=== PATIENT | female | born 1960 | race Caucasian/White ===

== ENCOUNTER → 2018-05-17 | Day surgery (SDC) | payer BC ==
[~2018-05-17] MED LIST: BENEFIBER1 EACH PO; CALCIUM500 MG PO; DAILY VALUE1 EACH PO; DYMISTA NASAL S23 GM; FENTANYL CITRATE/PF 100MCG/2 ML INJ ONE; FISH OIL 1,0001 EAC2 PO; HYOSCYAMINE SULFATE 0.5 MG/ML AMP ONE; IRON PO; LIDOCAINE HCL 2% LOCAL INJ 5 ML SDV VIAL INJ ONE; MIDAZOLAM HCL 2 MG/2 ML VIAL ONE; MONTELUKAST SOD10 MG PO; NASCOBAL2.3 ML; NASOCORT; NINGXIA RED PO; POTASSIUM CHLORIDE PO; PROPOFOL IV EMULSION 10 MG/ML 50 ML VIAL ONE; VITAMIN C1000 M1 PO; VITAMIN E1000 UNIT PO
[2018-05-17 09:10] VITALS: BP 119/79
--- NOTE | 2018-05-17 09:33 | Operative Report ---
DATE OF PROCEDURE: May 17, 2018 PROCEDURE PERFORMED: Colonoscopy and polypectomy. REFERRING PHYSICIAN: Dr. Roque Aquino. INDICATIONS FOR COLONOSCOPY: History of colon polyps. Colorectal cancer screening. MEDICATION: Patient was done under MAC. Please see anesthesiologist's note. PROCEDURE: With the patient in left lateral decubitus position, the flexible fiberoptic Olympus colonoscope was inserted into the rectum with ease and advanced all the way to the cecum. It was then withdrawn slowly. The mucosa overlying the cecum other than for a single diverticulum appeared to be within normal limits. The mucosa overlying the ascending colon appeared to be within normal limits. One polyp was snared from the transverse colon. The descending colon appeared to be within normal limits. Diverticular disease was noted to involve the sigmoid colon. One polyp was hot biopsied from the rectum. The scope was then retroflexed into the distal rectum and small internal hemorrhoids were noted, none of which were actively bleeding. The scope was then straightened out, was subsequently withdrawn. Patient tolerated the procedure well. IMPRESSION 1. Transverse colon polyp snared. 2. Diverticulosis. 3. Rectal polyp hot biopsied. 4. Internal hemorrhoids, none actively bleeding. PLAN: Follow up histology. Initiate high-fiber, low-fat diet. Initiate high-fiber supplement. Patient will need a followup colonoscopy in 3 to 5 years. Thank you very much. Job#: [id number] GE cc:ROQUE AQUINO DO
== END | disposition home or self-care (01) ==
LOC: OR 05:47
PROVIDERS: ATTEND Internal Medicine Gastroenterology
DX: Z12.11 Encounter for screening for malignant neoplasm of colon (principal); K63.5 Polyp of colon; K62.1 Rectal polyp; K57.30 Diverticulosis of large intestine without perforation or abscess without bleeding; K64.8 Other hemorrhoids; Z01.810 Encounter for preprocedural cardiovascular examination
CPT/HCPCS: 45384; 45385; 93005; J1980; J2001; J2250; 45378

== ENCOUNTER → 2021-10-29 | Day surgery (SDC) | payer OTHER ==
[~2021-10-29] MED LIST changes: +BENEFIBER1 EAC1; +GLUCAGON FOR INJ 1 MG VIAL ONE; -HYOSCYAMINE SULFATE 0.5 MG/ML AMP ONE; +HYOSCYAMINE SULFATE 0.5 MG/ML INJ ONE; -LIDOCAINE HCL 2% LOCAL INJ 5 ML SDV VIAL INJ ONE; -MIDAZOLAM HCL 2 MG/2 ML VIAL ONE; +MIDAZOLAM HCL 5 MG/ML VIAL ONE; +PROPOFOL IV EMULSION 10 MG/ML 20 ML VIAL ONE; -PROPOFOL IV EMULSION 10 MG/ML 50 ML VIAL ONE
[2021-10-29 13:15] VITALS: BP 132/81
== END | disposition home or self-care (01) ==
LOC: OR 10:15
PROVIDERS: ATTEND Internal Medicine Gastroenterology
DX: Z09 Encounter for follow-up examination after completed treatment for conditions other than malignant neoplasm (principal); Z86.010 Personal history of colon polyps; K57.30 Diverticulosis of large intestine without perforation or abscess without bleeding; K64.8 Other hemorrhoids; J30.2 Other seasonal allergic rhinitis; Z01.810 Encounter for preprocedural cardiovascular examination; Z01.812 Encounter for preprocedural laboratory examination; Z20.822 Contact with and (suspected) exposure to COVID-19
CPT/HCPCS: 45378; 93005; J1610; J1980; J2250; J2704; J3010; U0002